=== PATIENT | female | born 1955 | race African-American/Black ===

== ENCOUNTER 2018-11-05 06:14 | Inpatient (IN) ==
[2018-10-29 09:31] LABS: Basophils # 0.1 10*3/uL (0.0-0.2); Basophils % 0.8 % (0.0-0.8); Eosinophils # 0.3 10*3/uL (0.0-0.87); Hematocrit 35.1 VOL% (35.7-47.0); Hemoglobin 10.9 GM/DL (12.0-16.0); Immature Granulocytes % 0.3 %; Immature Granulocytes Absolute 0.02 #; Lymphocytes # 2.3 10*3/uL (1.4-4.0); Mean Corpuscular HGB Conc 31.1 GM/DL (32-36); Mean Corpuscular Volume 88.4 FL (87-102); Mean Platelet Volume 11.2 FL (9.6-12.0); Monocytes % 8.6 % (1.7-12.7); Neutrophils % 49.3 % (38.7-73.9); Platelet Count 250 T/CUMM (130-400); Red Blood Count 3.97 MC/CUMM (3.8-5.5); Red Cell Distribution Width 13.8 % (9.3-17.3); White Blood Count 6.4 T/CUMM (4-12)
[2018-10-29 09:44] LABS: PT Patient Result 10.5 SECS; Partial Thromboplastin Time 23.8 SECS (0-40)
[2018-10-29 09:51] LABS: Alanine Aminotransferase 33 U/L (13-56); Albumin 3.7 G/DL (3.4-5.0); Alkaline Phosphatase 80 U/L (45-117); Aspartate Amino Transferase 18 U/L (0-37); Bilirubin,Total < 0.39 MG/DL (0.2-1.0); Blood Urea Nitrogen 26 MG/DL (7-18); Calcium 9.3 MG/DL (8.5-10.1); Glucose 168 MG/DL (74-106); Osmolality,Calculated 291.1 MOS/KG (273-304)
[2018-10-29 10:03] LABS: Apearance,Urine Slightly Hazy (Clear); Bacteria,Urine Occasional /HPF (Few); Bilirubin,Urine Negative (Negative); Blood, Urine Negative (Negative); Glucose,Urine (UA) Negative (Negative); Hyaline Casts,Urine 1 /LPF (0-3); Ketones,Urine 5 mg/dL (Negative); Mucus,Urine Occasional /LPF (Occasional); Nitrite,Urine Negative (Negative); Protein,Urine 30 MG/DL; RBC,Urine <1 /HPF (0-4); Squamous Epithelial Cell,Urine Moderate /HPF (0-10); Urine Color Yellow (Yellow); Urine Specific Gravity 1.024 (1.001-1.035); Urine Urobilinogen < 2.0 EU/DL (0.2-1.0); WBC,Urine <1 /HPF (0-6)
[~2018-11-05 06:14] MED LIST: VANCOMYCIN 1,000 MG VIAL ONE; VANCOMYCIN INJ 1,000 MG in SODIUM CHLORIDE 0.9% 250 ML IV ONE; ceFAZolin 1,000 MG VIAL ONE; ceFAZolin 2,000 MG in PREMIX 1 EACH IV ONE
[2018-11-05] MEDS ORDERED: BUPIVACAINE 0.5% 50 ML VIAL ONE (06:27)
[2018-11-05] MEDS ORDERED: DEXAMETHASONE 4 MG/1 ML VIAL ONE ×2 (06:27→09:30)
[2018-11-05] MEDS ORDERED: LIDOCAINE 1% 5 ML VIAL ONE ×2 (06:27→09:29)
[2018-11-05] MEDS ORDERED: EPINEPHrine 1 MG/ML VIAL ONE (06:27)
[2018-11-05] MEDS ORDERED: LACTATED RINGERS 1,000 ML IV SCH (06:30)
[2018-11-05] MEDS ORDERED: NITROGLYCERIN SL 0.4 MG TABLET SL PRN (07:27)
[2018-11-05] MEDS ORDERED: ZALEPLON 5 MG CAPSULE PO PRN (07:31)
[2018-11-05] MEDS ORDERED: MAGNESIUM HYDROXIDE SUSP 30 ML UDCUP PO PRN (07:31)
[2018-11-05] MEDS ORDERED: oxyCODONE IR 5 MG TABLET PO PRN ×2 (07:31)
[2018-11-05] MEDS ORDERED: ONDANSETRON 4 MG/2 ML VIAL IV PRN (07:31)
[2018-11-05] MEDS ORDERED: MORPHINE 4 MG/1 ML VIAL IV PRN (07:31)
[2018-11-05] MEDS ORDERED: diphenhydrAMINE CAP 25 MG CAPSULE PO PRN (07:31)
[2018-11-05] MEDS ORDERED: BACITRACIN OINT 0.9 GM PACK TOP ONE (08:16)
[2018-11-05] MEDS ORDERED: PROPOFOL 200 MG/20 ML VIAL IV ONE (09:29)
[2018-11-05] MEDS ORDERED: MIDAZOLAM 2 MG/2 ML VIAL ONE (09:30)
[2018-11-05] MEDS ORDERED: KETAMINE 500 MG/10 ML VIAL ONE (09:30)
[2018-11-05] MEDS ORDERED: fentaNYL 100 MCG/2 ML VIAL ONE (09:30)
[2018-11-05] MEDS ORDERED: TRANEXAMIC ACID 1,000 MG/10 ML VIAL ONE (09:30)
[2018-11-05] MEDS ORDERED: ONDANSETRON 4 MG/2 ML VIAL ONE (09:31)
[2018-11-05] MEDS ORDERED: PHENYLEPHRINE 1 MG/10 ML SYRINGE IV ONE (09:31)
[2018-11-05] MEDS ORDERED: SODIUM CHLORIDE 0.9% 250 ML IV ONE (09:31)
[2018-11-05] MEDS ORDERED: ETOMIDATE 40 MG/20 ML VIAL IV ONE (09:31)
[2018-11-05] MEDS ORDERED: BUPIVACAINE SPINAL 0.75% 2 ML AMP SPINAL ONE (10:06)
[2018-11-05 10:24] LABS: Amorphous Crystals,Urine Occasional /HPF (Few); Apearance,Urine CLEAR (Clear); Bilirubin,Urine Negative (Negative); Blood, Urine Negative (Negative); Glucose,Urine (UA) Negative (Negative); Ketones,Urine Negative (Negative); Mucus,Urine Occasional /LPF (Occasional); Nitrite,Urine Negative (Negative); Protein,Urine 100 MG/DL; RBC,Urine 1 /HPF (0-4); Squamous Epithelial Cell,Urine Occasional /HPF (0-10); Urine Color Yellow (Yellow); Urine Urobilinogen < 2.0 EU/DL (0.2-1.0); WBC,Urine <1 /HPF (0-6)
[2018-11-05] MEDS ORDERED: ALBUTEROL 2.5 MG/3 ML NEB RESP TX PRN (11:30)
[2018-11-05] MEDS: KETOROLAC 30 MG/1 ML VIAL IV SCH ×3 (11:38→20:39)
[2018-11-05] MEDS: MORPHINE 4 MG/1 ML VIAL IV PRN ×2 (11:40→18:54)
[2018-11-05] MEDS: ACETAMINOPHEN 500 MG TABLET PO SCH ×3 (13:32→23:30)
[2018-11-05] MEDS: ISOSORBIDE MONONITRATE 60 MG TABLET PO SCH (13:36)
[2018-11-05] MEDS: amLODIPine 10 MG TABLET PO SCH (13:36)
[2018-11-05] MEDS: METOPROLOL TARTRATE 50 MG TABLET PO SCH ×2 (13:36→20:39)
[2018-11-05] MEDS: LOSARTAN 50 MG TABLET PO SCH (13:37)
[2018-11-05] MEDS: SIMVASTATIN 10 MG TABLET PO SCH ×2 (17:07→20:39)
[2018-11-05] MEDS: FLUTICASONE/SALMETEROL 100-50 DISKUS 14 DOSE INH SCH (19:02)
[2018-11-05] MEDS: FUROSEMIDE 40 MG TABLET PO SCH (19:02)
[2018-11-05] MEDS: DOCUSATE SODIUM 100 MG CAPSULE PO SCH ×2 (19:02→20:39)
[2018-11-05] MEDS: GABAPENTIN 300 MG CAPSULE PO SCH ×2 (19:02→20:39)
[2018-11-05] MEDS: PANTOPRAZOLE 40 MG TABLET PO SCH (19:03)
[2018-11-05] MEDS: MONTELUKAST 10 MG TABLET PO SCH (19:03)
[2018-11-05] MEDS: LACTATED RINGERS 1,000 ML IV SCH ×2 (20:37)
[2018-11-05] MEDS: INSULIN ASPART PROTAMINE/ASPART 70/30 100 UNIT/ML SUBCUT SCH (20:38)
[2018-11-05] MEDS: glyBURIDE/METFORMIN 5-500 MG TABLET PO SCH (21:27)
[2018-11-06] MEDS: KETOROLAC 30 MG/1 ML VIAL IV SCH (02:19)
[2018-11-06] MEDS: FONDAPARINUX 2.5 MG/0.5 ML SYRINGE SUBCUT SCH (02:19)
[2018-11-06 05:37] LABS: Basophils % 0.1 % (0.0-0.8); Hematocrit 28.3 VOL% (35.7-47.0); Immature Granulocytes % 0.6 %; Immature Granulocytes Absolute 0.05 #; Lymphocytes # 1.1 10*3/uL (1.4-4.0); Lymphocytes % 13.7 % (21.3-54.2); Mean Corpuscular HGB Conc 31.8 GM/DL (32-36); Mean Corpuscular Volume 85.5 FL (87-102); Mean Platelet Volume 11.7 FL (9.6-12.0); Monocytes % 9.3 % (1.7-12.7); Neutrophils % 76.3 % (38.7-73.9); Platelet Count 206 T/CUMM (130-400); Red Blood Count 3.31 MC/CUMM (3.8-5.5); Red Cell Distribution Width 13.7 % (9.3-17.3); White Blood Count 8.2 T/CUMM (4-12)
[2018-11-06 05:52] LABS: Calcium 8.6 MG/DL (8.5-10.1); Osmolality,Calculated 292.5 MOS/KG (273-304)
[2018-11-06] MEDS: ACETAMINOPHEN 500 MG TABLET PO SCH (05:55)
[2018-11-06] MEDS: LACTATED RINGERS 1,000 ML IV SCH (05:58)
[2018-11-06] MEDS ORDERED: DEXTROSE 50% 25 GM/50 ML VIAL IV PRN (06:07)
[2018-11-06] MEDS ORDERED: GLUCAGON 1 MG VIAL IM PRN (06:07)
[2018-11-06] MEDS: METOPROLOL TARTRATE 50 MG TABLET PO SCH ×2 (09:13→20:48)
[2018-11-06] MEDS: amLODIPine 10 MG TABLET PO SCH (09:13)
[2018-11-06] MEDS: GABAPENTIN 300 MG CAPSULE PO SCH ×2 (09:13→20:48)
[2018-11-06] MEDS: DOCUSATE SODIUM 100 MG CAPSULE PO SCH ×2 (09:13→20:48)
[2018-11-06] MEDS: ISOSORBIDE MONONITRATE 60 MG TABLET PO SCH (09:13)
[2018-11-06] MEDS: cephALEXin 500 MG CAPSULE PO SCH ×2 (09:14→13:43)
[2018-11-06] MEDS: glyBURIDE/METFORMIN 5-500 MG TABLET PO SCH ×2 (09:14→17:45)
[2018-11-06] MEDS: LOSARTAN 50 MG TABLET PO SCH (09:14)
[2018-11-06] MEDS: FUROSEMIDE 40 MG TABLET PO SCH (09:14)
[2018-11-06] MEDS: MONTELUKAST 10 MG TABLET PO SCH (09:14)
[2018-11-06] MEDS: INSULIN LISPRO 100 UNIT/ML SUBCUT SCH ×4 (09:15→20:48)
[2018-11-06] MEDS: INSULIN ASPART PROTAMINE/ASPART 70/30 100 UNIT/ML SUBCUT SCH ×2 (09:15→17:59)
[2018-11-06] MEDS: PANTOPRAZOLE 40 MG TABLET PO SCH (09:15)
[2018-11-06] MEDS: FLUTICASONE/SALMETEROL 100-50 DISKUS 14 DOSE INH SCH (09:16)
[2018-11-06] MEDS: CELECOXIB 200 MG CAPSULE PO SCH (12:31)
[2018-11-06] MEDS: SIMVASTATIN 10 MG TABLET PO SCH (20:48)
[2018-11-07] MEDS: FONDAPARINUX 2.5 MG/0.5 ML SYRINGE SUBCUT SCH (00:45)
[2018-11-07 05:40] LABS: Basophils # 0.1 10*3/uL (0.0-0.2); Basophils % 0.6 % (0.0-0.8); Eosinophils # 0.2 10*3/uL (0.0-0.87); Eosinophils % 1.6 % (0.00-10.9); Hematocrit 28.9 VOL% (35.7-47.0); Hemoglobin 8.8 GM/DL (12.0-16.0); Immature Granulocytes % 0.8 %; Immature Granulocytes Absolute 0.08 #; Lymphocytes # 2.8 10*3/uL (1.4-4.0); Lymphocytes % 27.7 % (21.3-54.2); Mean Corpuscular HGB Conc 30.4 GM/DL (32-36); Mean Corpuscular Volume 88.9 FL (87-102); Mean Platelet Volume 11.7 FL (9.6-12.0); Monocytes % 10.1 % (1.7-12.7); Neutrophils % 59.2 % (38.7-73.9); Platelet Count 233 T/CUMM (130-400); Red Blood Count 3.25 MC/CUMM (3.8-5.5); Red Cell Distribution Width 14.3 % (9.3-17.3); White Blood Count 10.1 T/CUMM (4-12)
[2018-11-07] MEDS: FUROSEMIDE 40 MG TABLET PO SCH (08:37)
[2018-11-07] MEDS: INSULIN LISPRO 100 UNIT/ML SUBCUT SCH ×2 (08:37→11:23)
[2018-11-07] MEDS: ISOSORBIDE MONONITRATE 60 MG TABLET PO SCH (08:37)
[2018-11-07] MEDS: CELECOXIB 200 MG CAPSULE PO SCH (08:38)
[2018-11-07] MEDS: GABAPENTIN 300 MG CAPSULE PO SCH (08:38)
[2018-11-07] MEDS: PANTOPRAZOLE 40 MG TABLET PO SCH (08:38)
[2018-11-07] MEDS: DOCUSATE SODIUM 100 MG CAPSULE PO SCH (08:38)
[2018-11-07] MEDS: METOPROLOL TARTRATE 50 MG TABLET PO SCH (08:38)
[2018-11-07] MEDS: LOSARTAN 50 MG TABLET PO SCH (08:38)
[2018-11-07] MEDS: MONTELUKAST 10 MG TABLET PO SCH (08:38)
[2018-11-07] MEDS: INSULIN ASPART PROTAMINE/ASPART 70/30 100 UNIT/ML SUBCUT SCH (08:38)
[2018-11-07] MEDS: amLODIPine 10 MG TABLET PO SCH (08:38)
[2018-11-07] MEDS: glyBURIDE/METFORMIN 5-500 MG TABLET PO SCH (08:38)
[2018-11-07] MEDS: FLUTICASONE/SALMETEROL 100-50 DISKUS 14 DOSE INH SCH (08:42)
[2018-11-07 11:51] VITALS: BP 121/60
== END 2018-11-07 15:50 | DRG 301 ==
LOC: N.OR 06:14 → N.SDSINP 06:15 → EDSTATUS 07:30 → N.SDSINP 07:31 → N.3E 09:28
PROVIDERS: ADMIT Orthopaedic Surgery; ATTEND Orthopaedic Surgery